=== PATIENT | female | born 1990 | race Caucasian/White ===

== ENCOUNTER 2023-02-14 08:05 | Outpatient (CLI) | payer BC, SELFPAY ==
--- NOTE | 2023-02-14 08:15 | CRLHL7_ITS ---
For Patients: As a result of the Century Cures Act, medical imaging exams and procedure reports are released immediately into your electronic medical record. You may view this report before your referring provider. If you have questions, please contact your health care provider. INDICATION: First trimester scan, establish dates. COMPARISON: None. TECHNIQUE: Real-time arriaga-scale imaging of the pelvis was performed. FINDINGS: Sonographic imaging demonstrates a single living intrauterine gestation. The embryo demonstrates a regular cardiac rate measuring 166 beats per minute. The embryo`s crown-rump length measurement of 2.6 cm corresponds to a gestational age of 9 weeks 2 days with a sonographic due date of 09/17/2023. There is a normal-appearing yolk sac. There are no gross abnormalities noted within the embryo at this early state of development. The gestational sac has a normal appearance. There is a 1.5 x 0.6 x 1.1 cm perigestational hemorrhage. The amount of fluid within the sac appears appropriate for gestational age. The cervix is closed. The myometrium appears normal. The ovaries are of normal size. Corpus luteal cyst left ovary. There are no suspicious fluid collections noted in the cul-de-sac. IMPRESSION: Single living intrauterine with a sonographic gestational age of 9 weeks 2 days and sonographic due date of 09/17/2023. Lower uterine segment subchorionic hemorrhage measuring 1.5 x 0.6 x 1.1 cm. Dictated by Israel Santo MD @ 02/14/2023 9:24:48 AM (Electronically Signed)
== END 2023-02-14 08:06 | disposition home or self-care (01) ==
LOC: US 08:06
PROVIDERS: PCP Obstetrics & Gynecology; Visit Provider Physician Assistant
DX: Z34.91 Encounter for supervision of normal pregnancy, unspecified, first trimester (principal); Z3A.09 9 weeks gestation of pregnancy
CPT/HCPCS: 76817; 86703; 86803; 86850; 86900; 86901; 87086; 87340; 87491; 87591

== ENCOUNTER 2023-02-14 13:19 | Outpatient (CLI) | payer BC, SELFPAY ==
[2023-02-14 18:58] LABS: Chlamydia DNA Amplified* NOT DETECTED (No Detected); GC DNA Amplified* NOT DETECTED (No Detected)
== END 2023-02-14 13:20 | disposition home or self-care (01) ==
PROVIDERS: PCP Obstetrics & Gynecology; Visit Provider Registered Nurse
DX: Z34.91 Encounter for supervision of normal pregnancy, unspecified, first trimester (principal); Z3A.09 9 weeks gestation of pregnancy
CPT/HCPCS: 86592; 86703; 86762; 86787; 86803; 86850; 86900; 86901; 87086; 87340; 87491; 87591

== ENCOUNTER 2023-05-01 12:46 | Outpatient (CLI) | payer BC, SELFPAY ==
--- NOTE | 2023-05-01 13:00 | CRLHL7_ITS ---
For Patients: As a result of the Century Cures Act, medical imaging exams and procedure reports are released immediately into your electronic medical record. You may view this report before your referring provider. If you have questions, please contact your health care provider. INDICATION: Evaluate anatomy. COMPARISON: 02/14/2023 TECHNIQUE: Real time arriaga scale imaging of the fetus was performed as well as color Doppler analysis of the umbilical vessels. FINDINGS: Sonographic imaging demonstrates a single living intrauterine gestation. Fetus demonstrates a regular cardiac rate of 138 beats per minute. Fetus has a breech position. The placenta lies posteriorly without evidence of placenta previa. The placental edge is located 6.8 cm from the internal cervical os. Amniotic fluid volume appears normal. Single deepest vertical pocket: 3.9 cm. The cervix is closed and measures 4.0 cm in length. The composite ultrasound gestational age is calculated at 20 weeks 4 days with an estimated sonographic due date of 09/14/2023. The estimated weight is 379 grams which lies at the 59th %. The following biometric measurements were obtained: Biparietal diameter: 4.8 cm/20 weeks 3 days 44th% Head circumference: 17.8 cm/20 weeks 2 days 29th% Abdominal circumference: 16.1 cm/21 weeks 1 day 64th% Femur length: 3.4 cm/20 weeks 4 days 40th% The HC/AC ratio measures: 1.11 range (1.07-1.25) On anatomic survey, there is a normal appearance of the cerebral ventricles, cavum septi pellucidi, cisterna magna and cerebellum. The nose, lips, and facial profile appear normal. The cervical, thoracic and lumbar spine are well visualized and appear normal. There is a normal four-chamber heart view and the left and right ventricular outflow tracts appear normal. The diaphragm and stomach appear normal. The kidneys and bladder also appear normal. There is a normal three-vessel cord and cord insertion site. The four extremities appear normal. IMPRESSION: Normal OB ultrasound exam with concordance of clinical and sonographic dating. No intrinsic abnormalities noted on anatomic survey. Dictated by Israel Santo MD @ 05/02/2023 7:15:47 AM (Electronically Signed)
== END 2023-05-01 12:47 | disposition home or self-care (01) ==
LOC: US 12:46
PROVIDERS: Visit Provider Obstetrics & Gynecology
DX: Z34.92 Encounter for supervision of normal pregnancy, unspecified, second trimester (principal); Z3A.20 20 weeks gestation of pregnancy
CPT/HCPCS: 76805

== ENCOUNTER 2023-06-27 08:46 | Outpatient (CLI) | payer OTHER, SELFPAY ==
--- OUTSIDE RECORDS SUMMARY | 2023-06-30 07:12 | XMS_ITS | Data Portability ---
Author Name Unknown Address [address] [place] [address] Phone [phone] Organization [facility] Address [address] [place] [address] Assessment Encounter Date Assessment Date Assessment LastModified by Organization Details LastModified Time 05/16/2022 05/16/2022 Annual gynecological exam performed. Patient will come back in a year unless there are new symptoms. Cervical mucus. Not available 05/16/2022 09:42:06 05/17/2022 05/17/2022 Bri is TTC and wants to optimize her health for fertility. Current BMI is in the overweight category. Bri has a good foundation of what makes a balanced meal, eats a diverse diet. She would like to cook at home more, order less takeout, and eat less treats after dinner. Plan: -Focus on satiety throughout the day to prevent after dinner unintentional snacking/treats. -Pair carbs with protein at all meals and snacks. -Practice some quick/easy home dinners to prevent takeout, don't stress about them being perfect. -Increase nutrient density in diet for fertility. Fish 2x/week, eggs daily, at least 5 servings of F/V daily. -Start reframing exercise as a lifelong healthy habit for mental health rather than changing your body. Not available 05/17/2022 10:01:49 Plan of Treatment Reminders Order Date Submit Date Provider Last Modified By Organization Details Last Modified Time Details Appointments None recorded. Lab None recorded. Referral infertility reproductiv e endocrinolo gy referral 2021 022 Not available 16:47:38 Procedures None recorded. Surgeries None recorded. Imaging None recorded. Medication Orders None recorded. Patient TargetsNo targets recorded. Patient Instructions Encounter Date Encounter Id Patient Instructions Last Modified By Organization Details Last Modified Time 05/17/2022 [id number] nutrition during : care instructions [email or web address] Not available 05/17/2022 10:02:55 1. Don't let carbohydrates fly solo. Eat carbohydrate-rich snacks and meals alongside protein + fat. For example, pair afternoon fruit with cheese, nuts, nut butter, etc. Check out the Balanced Snacks handout for more ideas. 2. Start mastering some quick and easy dinners at home to minimize frequency of ordering takeout. See below for some ideas. 3. Aim to eat fish 2x/week, eggs daily, and sneak fruits and vegetables into all meals and snacks. Add protein, fresh fruit, nut butter, seed mix, etc to your morning oatmeal to add nutrient-density. 4. Consider how you might reframe exercise to be something you value you doing, whether or not it changes your body. Maybe start looking into studios close to work you could take classes at a couple of times per week. Not available 05/17/2022 10:02:22 05/16/2022 [id number] Varun Montejo as wonderful chatting with you today, we hope you had a delightful experience! Care plan 1. Trying to conceive - Referral to a lamination spinner. I'll send you some in-network referral options 2. Optimizing health and wellness - I am happy you are meeting with Brianna. Together you can discuss how you can use nutrition to improve your health and get to a optimal weight. As always, feel free to contact us with any questions or concerns. 1. [facility]. Located on [address], [place] [address], about a [address] home[address] They have great patient reviews and accept your insurance. Check out their website and let me know what you think. If you are interested, there is a new patient registration form to complete. [email or web address] 2. [facility]. Located on [address] [facility], [address] [place] [address], about a [address] your home. This is a well known fertility practice and they have great patient reviews. They also accept your insurance. Take a look at the website and let me know what you think. [email or web address] 3. [facility]. Located at [address] [place] [address] [address], [place] [address], a [address] home. They have great patient reviews, accept your insurance and have good general availability. Check out their website and let me know what you think. [email or web address] ([email or web address] Not available 05/16/2022 17:08:03 Reason for Referral Infertility Reproductive End ocrinology Referral for Adult health examination Referring Physician: Kareem Sigala, Family Medicine, Encounter Date: 05/16/2022 Problems Name Status Onset Date Resolution Date Notes Provider Name and Address Organization Details Recorded Time Obesity Active [address], [address], [place], [address], [place] [facility] 05/16/2022 14:00:04 Problem Notes None recorded. Procedures Surgical History Date Name Laterality Status Provider Name and Address Organization Details Recorded Time 02/10/20 22 Date of Last Pap Smear completed [address], [address], [place], [address], [place] [facility] 05/16/2022 09:26:24 05/11/20 07 diagnostic procedure on adenoids completed [address], [address], [place], [address], [place] [facility] 05/16/2022 09:12:01 05/11/20 03 Appendectomy completed [address], [address], [place], [address], [place] [facility] 05/16/2022 09:11:41 Imaging Results None recorded. Procedure Notes None recorded. Medical Equipment None Reported. Allergies Allergen ID Allergen Name Allergen Category Reaction Reaction Severity Criticality Documentation Date Start Date Code Code System Note Provider Name and Address Organization Details Recorded Time 327 cefprozil medicatio n hives Not available Not available 05/16/2022 62687 RxNorm Kareem Sigala PA-C [address], [address], [place], [address], [facility] 09:10:31 Medications Name Sig Start Date Stop Date Status Note LastModified by Organization Details LastModified Time active Not Available Not Avai lable Not Available Vitals Date Recorded Body weight Body mass index (BMI) Body height Provider Name and Address Organization Details Last Updated DateTime 05/16/2022 25212.7 g 27.4 kg/m2 167.64 cm Kareem Sigala PA-C [address], [address], [place], [address], [facility] 05/16/2022 09:33:08 Social History Question Answer Notes LastModified by [employer] ion Details LastModified Time What Type Of Diet Are You Following? REGULAR I Probably Could Be Healthier. Information not available 05/16/2022 How Many Times Per Week Do You Exercise? 1-2 Times Per Week Videos, And Arms. She Used To Be A Member Of A Gym, But Classes. Information not available 05/16/2022 What Is Your Relationship Status? Information not available 05/16/2022 Are You Sexually Active? Yes Information not available 05/16/2022 Do You Have Any Dietary Restrictions? No Information not available 05/16/2022 Sex: Female Functional Status Question Answer Note LastModified by [facility] Details LastModified Time Are you able to care for yourself? Partner. Mook. Information not available 05/16/2022 What is your exercise level? Occasional Information not available 05/16/2022 Mental Status None recorded. Family History Relationship Description Onset Age of this Age Resolved Age Notes Father Depressive disorder Mother Miscarriage Notes:Older sister and older brother. Sister got easily. Her brother, they have 2 children. First, was natural, and second was IVF. Medical History No medical history recorded. Gynecological History Statement/Question Response Abnormal Pap N Flow Moderate What is the patient's status T rying to conceive Date of LMP 05/05/2022 On BCP's at Conception? N Duration of Flow (days) 28 Current Control Method Age at Menarche 12 Sexually Active? Y Menses Monthly Y Date of Last Pap Smear 02/09/2022 LMP Definite Obstetrics History GPAL:G 0 P 0 0 0 0 Past Encounters Encounter ID Performer Location Encounter Start Date Encounter Closed Date Diagnosis/Indication [id number] Kareem Sigala PA-C [facility] [address] [facility], [address] [place] [address] 05/16/2022 08:56:21 05/23/2022 16:47:38 Adult health examination Trying to conceive Obesity [id number] [facility] [address] [facility], [address] [place] [address] 05/17/2022 08:59:40 05/17/2022 10:03:10 Nutritional assessment completed Health Concerns Section Related Observation LastModified by Organization Detai ls LastModified Time None Recorded Concern Status LastModified by Organization Details LastModified Time None Recorded Advance Directives Directive None Recorded Payers Encounter Date Sequence Insurance Name Policy Number Policy Gavin Covered Member ID Gavin Member ID Guarantor Name 05/17/2022 1 [place] BC[employer] [place]) [id number] 1 Mook Pineda [id number] 37 Bri Edwin 05/16/2022 1 [place] [id number] 1 Mook Pineda [id number] Bri Pineda Notes Date Note Type Note Provider Name and Address Organization Details Recorded Time 05/16/2022 text/html HPI Notes: 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 History: actively trying to conceive Sexual complaints: no sexual complaints; no pain during intercourse; normal libido She found out about [facility] through her healthcare program. She got a card in the mail. This is a 31 year old. She has been for 4 years. In the past couple of years. They were trying, but then her brother 1.5 years ago. We have been doing everything right. What have you been doing to understand your fertility window? - Ovulation test strips. - She uses an sariah. She has never been Her brother tragically 1.5 years ago. Her sister has. She is taking it one day at a time. They have 3 children, no problem. Her family has grown closer. Talk to her parents about it. Accidental overdose. Her sister has had issues with depression during her period. She is 1 of four siblings. 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 Met her partner, Mook. Double major in [email or web address] and [employer]. General Health: - She has just gone to her OBGYN. 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 Last general physical, was in February. LMP: 05/05 libido: Doesn't feel like a burden. They do occasionally feel pressure, on that day. When they are fertile, at peak, those days and surrounding days. Mook's family, no family history. They are on Mook's insurance. She has blood work in February. She lives on a farm, dogs, Chickens and sheep, all outside. Kareem Sigala PA-C [address], [place], [address], - RANDY, PTamelaC. 05/23/2022 15:47:20 05/17/2022 text/html HPI Notes: What are your main priorities right now regarding food and nutrition? Healthier lifestyle, fertility, weight loss more takeout than I'd like treats Was 120 in college, 5'6. Gained d/t drinking. Lost weight after she stopped partying as much. Gained 10# in marriage, 10# (or more) in covid. Do you follow a special diet or have any particular food preferences? (for example, vegetarian, gluten-free, etc.) No Walk through a typical day of eating and drinking for you. It may be helpful to think about what you ate/drank yesterday. Please include all meals, snacks, and beverages. Breakfast: coffee & oatmeal. Lunch: chicken, dc pepper, adam, string cheese 4 pm Snack: apple Dinner: chicken thighs, sweet potatoes, salad, asparagus sometimes after dinner snack, treats. I drink water throughout the day she mainly grocery shops- does meal prep [place] Lives on a [place] farm- has fresh eggs and meat (chicken, brady). will meal plan for lunch but sometimes but gets takeout for dinner more often than ideal. works 9-6 as a tv news director. Brings lunch to work, rarely grabs lunch out (1x/mo). Do you currently take any vitamins, supplements or herbs? Which ones? Nature Made Multi + DHA Have you used diets to lose weight? I? ve used weight watchers in the past Is there anything you want your dietitian to know about your relationship with food or body image? I don? t have the best body image What form of exercise do you like to do, if any? I prefer classes, but have worked out at home since Covid started. I could work out more ? I currently exercise about once a week. Are there any questions you have that you? d like to be answered during the time together? I? m just looking forward to your insight on bettering my lifestyle and living healthier Brianna Grimm, [address], [address], [place], [address], - R[facility]Y, P[facility] 05/17/2022 10:03:06 OBGyn Episode No OBEpisode recorded.
--- OUTSIDE RECORDS SUMMARY | 2023-06-30 07:12 | XMS_ITS ---
Author Name Unknown Organization Unknown Patient Care team information Name Category Status Period Participants - - period not known -
--- OUTSIDE RECORDS SUMMARY | 2023-06-30 07:12 | XMS_ITS | Clinical Summary ---
Author Name Unknown Organization [facility] Address [place], [place] [address] Care Team Providers Care Small Business Director Name Role Phone None Primary Care Provider Unavailabl e Social History Tobacco Use Types Packs/Day Years Used Date Smoking Tobacco: Never Assessed Sex and Gender Information Value Date Recorded Sex Assigned at Not on file Gender Identity Not on file Sexual Orientation Not on file Plan of Treatment Health Maintenance Due Date Last Done Comments Tdap 2001 Depression screening for age 12+ 2002 HIV for age 15-65 2005 BMI (ht and wt on same day) for age 18+ 2008 Hepatitis C screening for ag e 18-79 2008 Tetanus booster 2010 COVID-19 vaccine series (2022- season) 2023 10/25/2020, 10/02/2020 Influenza for age 9-49 02/09/2023 Pap test for age 21-65 03/02/2025 , 03/02/2022 Pneumococcal series for age 6-64 Aged Out No longer eligible b ased on patient's age to complete this topic Care Teams Small Business Director Relationship Specialty Start Date End Date None . PCP - General 04/04/19
== END 2023-06-27 08:47 | disposition home or self-care (01) ==
LOC: NFLDREF 06-30 07:10
PROVIDERS: Visit Provider Obstetrics & Gynecology
DX: Z34.90 Encounter for supervision of normal pregnancy, unspecified, unspecified trimester (principal)
CPT/HCPCS: 86592

== ENCOUNTER 2023-07-04 08:04 | Outpatient (CLI) | payer OTHER, SELFPAY ==
--- OUTSIDE RECORDS SUMMARY | 2023-07-06 07:50 | XMS_ITS | Data Portability ---
Author Name Unknown Address [address] [place] [address] Phone [phone] Organization [facility] Address [address] [place] [address] Assessment Encounter Date Assessment Date Assessment LastModified [...] Trying to conceive - Referral to a jewelry racker. I'll send you some in-network referral options [...] Located on [address], [place] [address], about a [address] home[address] They have great patient reviews and accept your insurance. Check out their website and let me know what you think. If you are interested, there is a new patient registration form to complete. [email or web address] 2. [facility]. Located on [address] [facility], [address] [place] [address], about a [address] home. This is a well known fertility practice and they have great patient reviews. They also accept your insurance. Take a look at the website and let me know what you think. [email or web address] 3. [facility]. Located at [address] [place] [address] [address], [place] [address], a [address] home. They have great patient reviews, accept your insurance and have good general availability. Check out their website and let me know what you think. [email or web address] Not available 05/16/2022 17:08:03 Reason for Referral Infertility Reproductive End ocrinology Referral for Adult health examination Referring Physician: Kareem Sigala, Family Medicine, Encounter Date: 05/16/2022 Problems Name Status Onset Date Resolution Date Notes Provider Name and Address Organization Details Recorded Time Obesity Active [address], [address], [place], [address], [place] MD [facility] 05/16/2022 14:00:04 Problem Notes None recorded. Procedures Surgical History Date Name Laterality Status Provider Name and Address Organization Details Recorded Time 02/10/20 22 Date of Last Pap Smear completed [address], [address], [place], [address], [place] MD [facility] 05/16/2022 09:26:24 05/11/20 07 diagnostic procedure on adenoids completed [address], [address], [place], [address], [place] MD [facility] 05/16/2022 09:12:01 05/11/20 03 Appendectomy completed [address], [address], [place], [address], [place] MD [facility] 05/16/2022 09:11:41 Imaging Results None recorded. Procedure Notes None recorded. Medical Equipment None Reported. Allergies Allergen ID Allergen Name Allergen Category Reaction Reaction Severity Criticality Documentation Date Start Date Code Code System Note Provider Name and Address Organization Details Recorded Time 327 cefprozil medicatio n hives Not available Not available 05/16/2022 03074 RxNorm Kareem Sigala PA-C [address], [address], [place], [address], MD [facility] 09:10:31 Medications Name Sig Start Date Stop Date Status Note LastModified by Organization Details LastModified Time active Not Available Not Avai lable Not Available Vitals Date Recorded Body weight Body mass index (BMI) Body height Provider Name and Address Organization Details Last Updated DateTime 05/16/2022 72366.7 g 27.4 kg/m2 167.64 cm Kareem Sigala PA-C [address], [address], [place], [address], MD [facility] 05/16/2022 09:33:08 Social History Question Answer Notes LastModified by [employer] ion Details LastModified Time What Type Of [...] Functional Status Question Answer Note LastModified by [employer] Details LastModified Time Are you able to [...] Kareem Sigala PA-C [facility] [address] [facility], [address] [place] [address] 05/16/2022 08:56:21 05/23/2022 16:47:38 Adult health examination Trying to conceive Obesity [address] [facility] [address] [facility], [address] [place] [address] 05/17/2022 08:59:40 05/17/2022 10:03:10 Nutritional assessment completed Health Concerns Section Related Observation LastModified by Organization Detai ls LastModified Time None Recorded Concern Status LastModified by Organization Details LastModified Time None Recorded Advance Directives Directive None Recorded Payers Encounter Date Sequence Insurance Name Policy Number Policy Gavin Covered Member ID Gavin Member ID Guarantor Name 05/17/2022 1 [place] BC[place]) [id number] 1 Mook Pineda [id number] 37 Bri Edwin 05/16/2022 1 [place]) [id number] 1 Mook Pineda [id number] Bri Pineda Notes Date Note Type Note Provider Name and Address Organization Details Recorded Time 05/16/2022 text/html HPI Notes: 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 History: actively trying to [...] of four siblings. 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 Met her partner, Mook. Double major in [employer] and [employer]. General Health: - She has just gone to her OBGYN. No vocational ed instructor. Last general physical, was in February. LMP: 05/05 libido: Doesn't feel like a burden. They do occasionally feel pressure, on that day. When they are fertile, at peak, those days and surrounding days. Mook's family, no family history. They are on Mook's insurance. She has blood work in February. She lives on a farm, dogs, Chickens and sheep, all outside. Kareem Sigala PA-C [address], [place], [address], - RANDY, PTamelaC. 05/23/2022 15:47:20 05/17/2022 text/html [...] often than ideal. 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 Brings lunch to work, rarely grabs lunch [...] lifestyle and living healthier Brianna Grimm, NAT[address]IIA [address], [address], [place], [address], - RANDY, P.C. 05/17/2022 10:03:06 OBGyn Episode No OBEpisode recorded.
--- OUTSIDE RECORDS SUMMARY | 2023-07-06 07:50 | XMS_ITS | Clinical Summary ---
Author Name Unknown Organization [facility] Address [place], [place] [address] Care Team Providers Care Chisel Worker Name Role Phone None Primary Care Provider [...] age to complete this topic Care Teams Chisel Worker Relationship Specialty Start Date End Date None . PCP - General 04/04/19
== END 2023-07-04 08:05 | disposition home or self-care (01) ==
LOC: NFLDREF 07-06 07:48
PROVIDERS: Visit Provider Obstetrics & Gynecology
DX: Z34.93 Encounter for supervision of normal pregnancy, unspecified, third trimester (principal); R73.09 Other abnormal glucose
CPT/HCPCS: 82951; 82952

== ENCOUNTER 2023-08-22 09:55 | Outpatient (CLI) | payer OTHER, SELFPAY | END 2023-08-22 09:56 | disposition home or self-care (01) | LOC: NFLDREF 08-31 08:52 | PROVIDERS: Visit Provider Obstetrics & Gynecology | DX: Z34.93 Encounter for supervision of normal pregnancy, unspecified, third trimester (principal) | CPT/HCPCS: 87081; 87653 ==

== ENCOUNTER 2023-09-20 16:04 | Inpatient (IN) | payer OTHER, SELFPAY ==
--- OUTSIDE RECORDS SUMMARY | 2023-09-20 16:07 | XMS_ITS | Clinical Summary ---
Author Name Unknown Organization [employer] [facility] Address [place], [place] [address] Care Team Providers Care Tutorial Laboratory Supervisor Name Role Phone None Primary Care Provider [...] 2008 Tetanus booster 2010 COVID-19 vaccine series ( season) 2023 10/25/2020, 10/02/2020 Influenza for age 9-49 02/10/2024 Pap test for age 21-65 03/02/2025 , 03/02/2022 Pneumococcal series for age 6-64 Aged Out No longer eligible b ased on patient's age to complete this topic Procedures Procedure Name Priority Date/Time Associated Diagnosis Comments HPV THIN PREP Routine 03/02/2022 12:00 PM CDT from Last 3 Months or Most Recently Relevant to Health Maintenance Results * HPV HIGH RISK (03/02/2022 12:00 PM CDT) TYPE 16 Negative Negative 03/07/2022 5:45 PM CDT [facility] TYPE 18 Negative Negative 03/07/2022 5:45 PM CDT [facility] LABOR[facility] OTHER HIGH RISK TYPES Negative Negative 03/07/2022 5:45 PM CDT [facility] Other (Cervical) 03/02/2022 12:00 PM CDT 03/06/2022 8:23 AM CDT Narrative [facility] - 03/07/2022 5:45 PM CDT HPV types 16, 18, 31, 33, 35, 39, 45, 51, 52, 56, 58, 59, 66 and 68 DNA were undetectable or below the pre-set threshold. Methodology: Will Angelita 4800 HPV Test Doctor Unknown MICROBIOLOGY [facility] [address] [place] [address], from Last 3 Months or Most Recently Relevant to Health Maintenance Care Teams Tutorial Laboratory Supervisor Relationship Specialty Start Date End Date None . PCP - General 04/04/19
--- OUTSIDE RECORDS SUMMARY | 2023-09-20 16:07 | XMS_ITS | Data Portability ---
Author Name Unknown Address [address] [place] [id number] Phone [phone] Organization [facility] Address [address] [place] [address] Assessment Encounter Date Assessment Date Assessment LastModified [...] Trying to conceive - Referral to a bag patcher. I'll send you some in-network referral options [...] Located on [address], [place] [address], about a [address] home[address] They have great patient reviews and accept your insurance. Check out their website and let me know what you think. If you are interested, there is a new patient registration form to complete. [email or web address] 2. [facility]. Located on [address], [address] [place] [address], about a [address] home. This is a well known fertility practice and they have great patient reviews. They also accept your insurance. Take a look at the website and let me know what you think. [email or web address] 3. [facility]. Located at [address] [place] [address] [address], [place] [address], a [address] home. They have great patient reviews, accept your insurance and have good general availability. Check out their website and let me know what you think. [email or web address] Not available 05/16/2022 17:08:03 Reason for Referral Infertility Reproductive End ocrinology Referral for Adult health examination Referring Physician: Kareem Sigala, Family Medicine, Encounter Date: 05/16/2022 Problems Name Status Onset Date Resolution Date Notes Provider Name and Address Organization Details Recorded Time Obesity Active [address], [address], [place], [address], [place] [facility] 05/16/2022 14:00:04 Problem Notes None recorded. Procedures Surgical History Date Name Laterality Status Provider Name and Address Organization Details Recorded Time 02/10/20 22 Date of Last Pap Smear completed [address], [address], [place], [address], [place] [facility] 05/16/2022 09:26:24 05/11/20 07 diagnostic procedure on adenoids completed [address], [address], [place], [address], [place] [facility] 05/16/2022 09:12:01 05/11/20 03 Appendectomy completed [address], [address], [place], [address], [place] [facility] 05/16/2022 09:11:41 Imaging Results None recorded. Procedure Notes None recorded. Medical Equipment None Reported. Allergies Allergen ID Allergen Name Allergen Category Reaction Reaction Severity Criticality Documentation Date Start Date Code Code System Note Provider Name and Address Organization Details Recorded Time 327 cefprozil medicatio n hives Not available Not available 05/16/2022 30523 RxNorm Kareem Sigala PA-C [address], [address], [place], [address], [facility] 09:10:31 Medications Name Sig Start Date Stop Date Status Note LastModified by Organization Details LastModified Time active Not Available Not Avai lable Not Available Vitals Date Recorded Body weight Body mass index (BMI) Body height Provider Name and Address Organization Details Last Updated DateTime 05/16/2022 92148.7 g 27.4 kg/m2 167.64 cm Kareem Sigala PA-C [address], [address], [place], [address], [facility] 05/16/2022 09:33:08 Social History Question Answer Notes LastModified by [employer] ion Details LastModified Time What Type Of [...] Functional Status Question Answer Note LastModified by Robinhoodizat KongZhong Details LastModified Time Are you able to [...] Gynecological History Statement/Question Response Abnormal Pap N Trying to conceive Moderate Date of LMP 05/05/2022 N Duration of Flow (days) 28 Age at Menarche 12 Current Control Method Sexually Active? Y Menses Monthly Y Date of Last Pap Smear 02/09/2022 Definite Obstetrics History GPAL:G 0 P 0 0 0 0 Past Encounters Encounter ID Performer Location Encounter Start Date Encounter Closed Date Diagnosis/Indication Diagnosis SNOMED-CT Code [id number] Kareem Sigala PA-C [facility] [address] [place] [address] 05/16/2022 08:56:21 05/23/2022 16:47:38 Adult health examination [id number] Trying to conceive [address] 9001 Obesity [id number] [facility] [address] [place] [address] 05/17/2022 08:59:40 05/17/2022 10:03:10 Nutritional assessment completed [id number] Health Concerns Section Related Observation LastModified by Organization Detai ls LastModified Time None Recorded Concern Status LastModified by Organization Details LastModified Time None Recorded Advance Directives Directive None Recorded Payers Encounter Date Sequence Insurance Name Policy Number Policy Gavin Covered Member ID Gavin Member ID Guarantor Name 05/17/2022 1 [place]) [id number] Mook Pineda [id number] Bri Edwin 05/16/2022 1 [place] [id number] Mook Pineda [id number] Bri Pineda Notes Date Note Type Note Provider Name and Address Organization Details Recorded Time 05/16/2022 text/html HPI Notes: 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 History: actively trying to [...] Met her partner, Mook. 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 General Health: - She has just gone to her OBGYN. No color television console monitor. Last general physical, was in February. LMP: 05/05 libido: Doesn't feel like a burden. They do occasionally feel pressure, on that day. When they are fertile, at peak, those days and surrounding days. Mook's family, no family history. They are on Mook's insurance. She has blood work in February. She lives on a farm, dogs, Chickens and sheep, all outside. Kareem Sigala PA-C [address], [address], [place], [address], [facility] 05/23/2022 15:47:20 05/17/2022 text/html HPI Notes: What [...] my lifestyle and living healthier [place] [address], [address], [place], [address], - [facility] 05/17/2022 10:03:06 OBGyn Episode No OBEpisode recorded.
[2023-09-20 16:17] VITALS: PULSE 122; O2SAT 96
[2023-09-20 16:21] VITALS: BP 110/74; PULSE 117
--- NOTE | 2023-09-20 16:29 | P.LDBA_ITS ---
Subjective History of Present Illness Time Seen by Provider: 17:15 Date Seen: 09/20/23 Narrative: Bri is being admitted to Labor and Delivery for postdates induction of labor. She is a 33 year old G1/P at 40 weeks 6 days gestation. Her full history and physical was dictated by Dr. Morton on 08/28/2023. Please see this for details. Specific Issues/Plans G 1 [place] baby! H&P Dr. Morton on 08/28/2023 1. Infertility d/t 's low sperm motility -- conceived spontaneously after 3 unsuccessful rounds of IUI!! 2. Melanocytic skin lesion on abdomen, periumbilical, 1 mm. Consider excision . COVID: Completed, booster 05/01 Flu: got at work on 04/18/23 Tdap: 07/10/23 GBS: negative OB - Problem Based A/P Additional Plan (1) Encounter for induction of labor: Start date: 09/20/23 Start time: 17:10 Status: Acute Plan: 1. Cook catheter placed at 5:10 p.m., 60 mL in both balloons. 2. Low-dose Pitocin to start at midnight. 3. GBS negative 4. Blood type A positive 5. IM morphine and p.o. Vistaril ordered for pain and sleep, respectively. 6. Dr. Quintin Solano to assume care at 7Am on 09/21/2023 OB Exam Physical Exam Vital signs: Pulse BP Pulse Ox 117 H 110/74 96 09/20/23 16:21 09/20/23 16:21 09/20/23 16:17 Narrative: GENERAL APPEARANCE: Pleasant, [race], well-groomed woman in no acute distress. VITAL SIGNS: as noted in nursing notes HEAD: Normocephalic, atraumatic. THYROID: no masses, nodularity, tenderness or enlargement. LUNGS: Clear to auscultation bilaterally without wheezes, rales or rhonchi. HEART: Regular rate and rhythm with normal S1 and S2. No gallop, rub or murmur. ABDOMEN: Gravid. Soft, nontender, nondistended, with normal bowels sounds throughout. EFM: 125bpm baseline, Accelerations: present. Decelerations: Absent. Reactive. Category 1. TOCO: Irritability with sporadic contractions. PRESENTATION: Vertex by Jabari's maneuvers, bedside ultrasound and SVE.. SVE: 1 cm/ 70%/ -1/soft/posterior. Weeks score: 7. Cook catheter placed without difficulty at 5:10 p.m. 60 mL in both balloons. EXTREMITIES: No cyanosis, clubbing, or edema. No varicosities. NEUROLOGIC: Normal gait and balance. Normal deep tendon reflexes at bilateral p atella 2+/2, equal without clonus. PSYCHIATRIC: alert and oriented x3. Normal speech pattern, eye contact and affect. SKIN: Warm, dry, and well perfused. Good turgor. No lesions, nodules or rashes.
[2023-09-20 18:12] VITALS: BMI 31.4
[2023-09-20 19:00] LABS: Basophils Absolute Auto 0.02 K/uL (0.00-0.30); Basophils Percent Auto 0.2 % (0.0-3.0); Eosinophils Absolute Auto 0.09 K/uL (0.00-0.50); Eosinophils Percent Auto 0.9 % (0.0-7.0); Hematocrit 36.6 % (33.0-51.0); Hemoglobin* 12.4 gm/dL (12.0-16.0); Immature Granulocytes Abs Auto 0.05 K/uL (0.00-0.30); Immature Granulocytes Pct Auto 0.5 %; Lymphocytes Percent Auto 18.6 % (20-44); Mean Corpuscular HGB Conc 34 gm/dL (32-36); Mean Corpuscular Hemoglobin 31 pg (26-34); Mean Corpuscular Volume 92 fL (80-100); Monocytes Percent Auto 6.4 % (0.0-11.0); Neutrophils Percent Auto 73.4 % (42.0-72.0); Platelet Count* 221 K/uL (140-440); RDW Coefficient of Variation % 13.3 % (11.5-15.5); Red Blood Count 3.97 m/uL (4.00-5.20); White Blood Count* 9.93 K/uL (4.50-11.00)
[2023-09-20 19:03] LABS: Slide Review Reflex No
[2023-09-20] MEDS: LACTATED RINGERS 1000 ML 1,000 ML 500 ML IV (19:20)
[2023-09-20 19:26] VITALS: BP 123/82; PULSE 89; TEMP 36.6
[2023-09-20 21:15] VITALS: BP 129/76; PULSE 91; TEMP 36.2
[2023-09-20] MEDS: OXYTOCIN 30 unit/500 ML in NS 30 UNIT/500 ML BAG IVPB (23:59)
[2023-09-21] VITALS (30 sets, daily range): BP systolic 105–146; BP diastolic 56–83; PULSE 63–92; RESP 16–18; TEMP 36.4–37; O2SAT 97–100
[2023-09-21] MEDS: LACTATED RINGERS 1000 ML 1,000 ML 125 ML IV ×2 (02:41→17:20)
--- NOTE | 2023-09-21 07:58 | PM.OBPNL ---
Subjective Time Seen by Provider: 07:30 Date Seen: 09/21/23 Narrative: Ms. Pineda is a 33yo ongoing IOL at 41w0d GA for late term gestation. is otherwise uncomplicated. Induction of labor was started yesterday evening with Cook catheter and Pitocin. Cook catheter was removed at 12 hours, Pitocin is currently running at 7 mU/min. Bri is feeling well with no acute concerns. She denies feeling her contractions. No vaginal bleeding or leaking of fluid. Endorses active movement. Objective Exam: General: Alert and oriented, in no acute distress Abdomen: Gravid. EFW 3800 g by Pedro. Cervix: 3/60/-1 with head well applied to the cervix FHR: Category 1 heart rate tracing - baseline is 140 beats per minute, moderate variability, accelerations present, decelerations absent. [place]: Markus every 2-3 minutes, not painfully Vital Signs: Last Vital Signs Temp 98.1 F 09/21/23 07:15 Pulse 89 09/21/23 07:15 BP 126/81 09/21/23 07:15 Pulse Ox 98 09/21/23 07:15 Plan Plan: Bri is a 33-year-old seen at 41 weeks 0 days ongoing induction of labor for late term gestation. is otherwise uncomplicated. - Induction was started with Cook catheter and Pitocin - Cervix is now 3/60/-1, she is markus every 2-3 minutes without pain on Pitocin at 7. - Plan to continue Pitocin titration over the next few hours with plan to AROM as likely next step - Anticipate next exam in 3-4 hours, sooner as clinically indicated - Blood type A positive, GBS negative - EFW by Jabari's 3800 g
[2023-09-21] MEDS: LACTATED RINGERS 1000 ML 1,000 ML 1125 ML IV ×2 (10:27→10:28)
--- NOTE | 2023-09-21 17:26 | P.OBPN_ITS ---
Subjective Time Seen by Provider: 16:30 Date Seen: 09/21/23 Narrative: Bri is a 33-year-old at 41 weeks 0 days gestation ongoing induction of labor for late term gestation. She is status post Cook catheter, AROM and is ongoing Pitocin titration. In to assess for labor check. She reports uncomfortable contractions, 3/10 in severity. No vaginal bleeding. Objective Exam: Cervix: 3.5/70/-1 FHR: Category 1. Baseline 140bpm, moderate variability, accelerations present, decelerations absent [place]: Wilda q2-3m Vital Signs: Last Vital Signs Temp 98.2 F 09/21/23 16:17 Pulse 76 09/21/23 17:24 BP 136/76 09/21/23 17:24 Pulse Ox 97 09/21/23 15:04 Plan Plan: Plan to continue Pitocin titration, currently on 15mU/min. Once we reached 20, plan to hold Pitocin at this value pending FHR and toco data. If her exam remains unchanged at 4 hours, plan to proceed with IUPC placement to assess adequacy of contractions. - Next exam in 4-6 hours, sooner as clinically indicated - Blood type B positive - GBS negative
[2023-09-22] VITALS (119 sets, daily range): BP systolic 89–201; BP diastolic 50–134; PULSE 61–134; RESP 16–26; TEMP 36.7–37.9; O2SAT 96–99
[2023-09-22] MEDS: LACTATED RINGERS 1000 ML 1,000 ML 900 ML IV (00:20)
--- NOTE | 2023-09-22 00:50 | PM.OBPNL ---
Subjective Time Seen by Provider: 00:00 Date Seen: 09/22/23 Narrative: In to assess for routine exam. Patient noting increasing pain with contractions, questioning epidural. RN exam notable for no cervical change. We discussed risks/benefits of pain control methods, where she ultimately desires epidural placement. [employer] notified. Discussed risks/benefits/alternatives to IUPC placement and pitocin titration. Objective Vital Signs: Last Vital Signs Temp 98.0 F 09/21/23 22:30 Pulse 88 09/22/23 00:24 Resp 18 09/21/23 22:30 BP 136/86 09/22/23 00:24 Pulse Ox 99 09/22/23 00:47 Pelvic Exam Dilation (cm): 3.5 Effacement (%): 80 Station: -1 Plan Plan: Bri is a 33yo at 41w1d GA ongoing IOL for late term gestation. Her labor course is significant for slow progress through the latent phase of labor. She is s/p cook catheter, pitocin approximately 24 hours and AROM performed at 1200. Cervix is now 3.5/80/-1, where IUPC was placed. Plan to proceed with epidural placement, then continue pitocin titration to total of 30mu/min. If no cervical change is noted, consider pitocin holiday with future checks. We discussed her abnormal labor course and when a primary C/S may be considered for failed IOL. I explained my standard guideline for failed IOL would include both >24 hours on pitocin and AROM >18 hours, assuming stable maternal and condition. As such, I tried to reassure Bri that we do still have time and tools in our kit. If we are unable to get her into active labor with the above plan, however, I would recommend consideration of primary C/S in the morning. Bri and her expressed understanding. All questions answered. Next exam in 4-6 hours, sooner as clinically indicated.
[2023-09-22] MEDS: ROPIVACAINE 0.2% 100 ml 100 ML 12 MG EPIDURAL ×3 (01:02→17:38)
--- NOTE | 2023-09-22 01:08 | P.ANBPRC_ITS ---
[facility] Surgical History (Updated 08/28/23 @ 08:54 by Ciera Morton MD) History of tonsillectomy ?Z90.89 - Acquired absence of other organs (ICD-10) Hx of appendectomy ?Z90.49 - Acquired absence of other specified parts of digestive tract (ICD- 10) Family History Mother Non-Hodgkin lymphoma Lewy body dementia Thyroid disease High blood pressure Osteoporosis Basal cell carcinoma Brother High blood pressure Drug dependence Maternal Grandmother Colon cancer Stroke Social History (Updated 08/28/23 @ 08:55 by Ciera Morton MD) Narrative: Lives in [place] with . 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 Patient is . What is your current living situation?: I presently have a place to live Problems where you live: no known problems In the past 12 months, utilities in danger of being shut off: no In past 12 months, lack of transportation kept you from medical appts, meetings, work, or getting things needed for daily living: no In the past 12 mos, have been you worried that your food would run out before you had money to buy more?: never true In the past 12 mos, the food you bought just didn't last and you didn't have money to buy more?: never true Smoking Status: Never smoker How often does anyone, including family, friends and others, physically hurt you : never How often does anyone, including family, friends and others, insult or talk down to you: never How often does anyone, including family, friends and others, threaten you with harm: never How often does anyone, including family, friends and others, scream or curse at you: never Little interest or pleasure in doing things: not at all Feeling down, depressed, or hopeless: not at all Meds Home Medications and Allergies Home Medications Medication Instructions Recorded Confirmed Type docosahexaenoic acid 200 mg 1 mg PO DAILY 02/14/23 09/21/23 History capsule ( DHA) calcium carbonate (Tums) 200 mg PO BID 09/04/23 09/20/23 History Allergies Allergy/AdvReac Type Severity Reaction Status Date / Time cefprozil Allergy Mild Hives Verified 09/19/23 08:21 Results Vital Signs Vital Signs: Last Vital Signs Temp 98.0 F 09/21/23 22:30 Pulse 93 09/22/23 01:06 Resp 18 09/21/23 22:30 BP 129/62 09/22/23 01:06 Pulse Ox 98 09/22/23 01:07 Weight: 88.36 kg Height: 167.64 cm Anesthesia Procedures Epidural Insertion Patient Location: OB Start Time: 00:20 Stop Time: 01:09 Start Date: 09/22/23 Stop Date: 09/22/23 Reason for Block: procedure for pain Patient Position: sitting Performed By: Иван George Preanesthetic Checklist: IV checked, risks and benefits discussed, monitors and equipment checked, pre-op evaluation, timeout performed and anesthesia consent Prep: chlorhexidine gluconate Monitoring: blood pressure monitoring, continuous pulse oximetry and heart rate Approach: midline (spinous process was off to the left of the midline of the back. Pt denies scoliosis, reports brother diagnosed with scoliosis ) Vertebral Space: lumbar (1-5) Epidural Technique: DEDRICK saline Needle Type: Tuohy needle Injection Technique: continuous catheter Needle gauge: 17 Needle Length (cm): 10 cm Needle Insertion Depth (cm): 7 Catheter Gauge: 19 Catheter Type: multi-orifice Catheter at skin depth (cm): 13 Test Dose Result: negative and lidocaine 1.5% with epinephrine 1 to 200,000
[2023-09-22] MEDS: PHENYLEPHRINE 100 MCG/ML SYRINGE IVP ×2 (02:24→06:55)
[2023-09-22] MEDS: CALCIUM CARBONATE 500 MG CHEW PO ×2 (05:10→07:48)
[2023-09-22] MEDS: LACTATED RINGERS 1000 ML 1,000 ML 125 ML IV ×2 (06:22→14:29)
--- NOTE | 2023-09-22 08:18 | P.OBPN_ITS ---
Subjective Time Seen by Provider: 08:18 Date Seen: 09/22/23 Narrative: Subjective: Patient is comfortable w/ epidural/uncomfortable with contractions. Pitocin: 25 milliunits/minute. Vital signs: Per electronic medical record. EFM: Baseline 130s, positive accelerations, negative decelerations, moderate variability, reactive. Category 1. IUPC: Contractions every 2 minutes. [place] units at 7am: 200. SVE: Deferred Assessment: 33-year-old 1 para 0 at 41 weeks 1 days gestation undergoing postdates induction of labor Plan: 1. Stop Pitocin for 30 minutes, restart at 12 milliunits/minute for Pitocin break to hopefully allow more Pitocin receptors to be available for Pitocin to activate the uterus. 2. Continue epidural for labor analgesia. 3. If unable to get the patient past 5 cm dilated with Pitocin will perform a primary for unsuccessful induction of labor. Objective Vital Signs: Last Vital Signs Temp 98.4 F 09/22/23 07:32 Pulse 87 09/22/23 08:07 Resp 16 09/22/23 06:12 BP 108/62 09/22/23 08:07 Pulse Ox 98 09/22/23 01:07 Pelvic Exam Dilation (cm): 3.5 Effacement (%): 80 Station: -1
[2023-09-22] MEDS: OXYTOCIN 30 unit/500 ML in NS 30 UNIT/500 ML BAG 16 UNIT IVPB (14:10)
--- NOTE | 2023-09-22 14:32 | PM.OBPNL ---
Subjective Time Seen by Provider: 14:32 Date Seen: 09/22/23 Narrative: Subjective: Patient is somewhat uncomfortable with contractions but managing well, has an epidural. Pitocin: 16 milliunits/minute. Vital signs: Per electronic medical record. EFM: Baseline 150, 10 x 10 accelerations, sporadic variable decelerations, moderate variability, nonreactive. Category 2 but reassuring. [place]: Contractions every 2 minutes. SVE: 10 cm/100 %/+1. Assessment: 33-year-old 1 para 0 at 41 weeks 1 days gestation undergoing induction of labor for postdates Plan: 1. Continue Pitocin per labor induction protocol. 2. Continue epidural for labor analgesia. 3. Planning on starting pushing. Objective Vital Signs: Last Vital Signs Temp 98.7 F 09/22/23 13:00 Pulse 88 09/22/23 14:21 Resp 16 09/22/23 06:12 BP 135/76 09/22/23 14:21 Pulse Ox 98 09/22/23 01:07 Pelvic Exam Dilation (cm): 3.5 Effacement (%): 80 Station: -1
[2023-09-22] MEDS: ACETAMINOPHEN 500 MG TABLET 1000 MG PO (19:17)
[2023-09-22] MEDS: TRANEXAMIC ACID 100 MG/ML INJ 1000 MG IV (19:21)
[2023-09-22] MEDS: miSOPROStoL 800 MCG/4 TABLET PR (19:33)
[2023-09-22] MEDS: METHYLERGONOVINE MALEATE 0.2 MG/ML INJ IM (19:39)
[2023-09-22 19:58] LABS: Hematocrit 35.4 % (33.0-51.0); Hemoglobin* 11.7 gm/dL (12.0-16.0); Immature Granulocytes Pct Auto 0.4 %; Lymphocytes Percent Auto 2.1 % (20-44); Mean Corpuscular HGB Conc 33 gm/dL (32-36); Mean Corpuscular Hemoglobin 31 pg (26-34); Mean Corpuscular Volume 94 fL (80-100); Monocytes Percent Auto 4.6 % (0.0-11.0); Neutrophils Percent Auto 92.9 % (42.0-72.0); Platelet Count* 190 K/uL (140-440); RDW Coefficient of Variation % 13.2 % (11.5-15.5); Red Blood Count 3.75 m/uL (4.00-5.20); White Blood Count* 18.85 K/uL (4.50-11.00)
[2023-09-22 20:00] LABS: Slide Review Reflex No
--- NOTE | 2023-09-22 20:06 | W.PM.VAGDEL1 ---
Procedure Delivery date: 09/22/23 Procedure Done: Global Procedure Details: Bri is a 33 year-old G 1 P 0 now 1 admitted on 09/20/2023 at 4:30 p.m. at 40 Weeks, 6 Days gestation for induction of labor. She had a Cook catheter placed at 5:10 p.m. on 09/20/2023 that was removed at 5:10 a.m. on 09/21/2023. Low-dose Pitocin started at 5:00 a.m. on 09/21/2023 AROM occurred at 12:10 p.m. on 09/21/2023 with clear fluid. Labor Analgesia: Epidural Pitocin: Yes Labor onset: 09/22/2003 at 12:30 a.m.. Complete: 09/22/2023 at 4:24 p.m.. Pushin09/22/2023 at 2:40 p.m.. heart tones during second stage were: Category 2 with some deep variable decelerations to the 80s-90s with . Moderate variability between contractions with baseline increased to 170s in the last hour of her 2nd stage. Maternal temperature 100.8? F 45 minutes after delivery. At 7:08 p.m. a viable female infant delivered in vertex direct OA presentation over second-degree perineal laceration via spontaneous vaginal delivery. The infant was placed on maternal abdomen. Cord was clamped and cut after a 60 second delay. Nose and mouth were bulb suctioned. Infant weight pending. 8 at 1 minute and 9 at 5 minutes. Shoulder dystocia: No. Nuchal cord: No. Terminal meconium noted Placenta delivered spontaneously and complete at 7:31 p.m. with a 3 vessel cord. After delivery of the placenta there was noted to be significant lower uterine segment atony. Patient received a g of TXA after delivery of the baby, Pitocin 30 milliunits in 500 mL lactated Ringer's at 300 mL/hour IV, Methergine 0.2 mg IM x1, Cytotec 800 mg p.r. and placement of Shalonda system to treat uterine atony. Laceration(s): 2nd degree perineal. Repaired using 3-0 Vicryl suture in the usual manner. Blood loss: 900 mL. Blood loss measurement type: Quantitative Sponge and needles counts are correct. Specimen: None Mother and were stable after delivery. 's name: More (K-eye-uh) The patient is planning on breast feeding. Events: Prolonged Rupture of Membrane Intrapartal Events: Prolonged Labor >20 Hrs and Prolonged 2nd Stage >2.5 Hrs Delivery augmentation: rupture of membranes and pitocin Delivery monitor: external FHT Laceration description: Perineal - 2nd Degree Delivery repair: Vicryl Estimated blood loss (mL): 900 Anesthesia type: Epidural Disposition: floor
[2023-09-22 20:16] LABS: INR 1.02 (0.91-1.10); Prothrombin Time 14.1 Seconds
[2023-09-22 20:17] LABS: Fibrinogen* 506 mg/dL (200-450); Partial Thromboplastin Time* 28 Seconds (23-33)
[2023-09-22] MEDS: IBUPROFEN 600 MG TABLET PO (23:05)
[2023-09-23 00:04] VITALS: BP 113/70; PULSE 96; RESP 16; TEMP 36.9
[2023-09-23 00:37] LABS: Rapid Plasma Reagin (RPR) Non Reactive (Non Reactive)
[2023-09-23] MEDS: ACETAMINOPHEN 500 MG TABLET 1000 MG PO ×3 (02:25→16:27)
[2023-09-23 05:21] VITALS: BP 120/71; PULSE 85; RESP 16; TEMP 36.6
[2023-09-23] MEDS: IBUPROFEN 600 MG TABLET PO ×3 (05:22→23:17)
[2023-09-23 06:27] LABS: Basophils Percent Auto 0.1 % (0.0-3.0); Hematocrit 30.6 % (33.0-51.0); Hemoglobin* 10.4 gm/dL (12.0-16.0); Immature Granulocytes Pct Auto 0.4 %; Lymphocytes Percent Auto 5.8 % (20-44); Mean Corpuscular HGB Conc 34 gm/dL (32-36); Mean Corpuscular Hemoglobin 32 pg (26-34); Mean Corpuscular Volume 94 fL (80-100); Monocytes Percent Auto 6.5 % (0.0-11.0); Neutrophils Percent Auto 87.2 % (42.0-72.0); Platelet Count* 182 K/uL (140-440); RDW Coefficient of Variation % 13.5 % (11.5-15.5); Red Blood Count 3.26 m/uL (4.00-5.20)
[2023-09-23 06:36] LABS: Slide Review Reflex No; White Blood Count* 27.67 K/uL (4.50-11.00)
[2023-09-23 07:23] LABS: INR 1.17 (0.91-1.10); Prothrombin Time 15.6 Seconds
[2023-09-23 07:24] LABS: Partial Thromboplastin Time* 34 Seconds (23-33)
[2023-09-23 07:25] LABS: Fibrinogen* 552 mg/dL (200-450)
[2023-09-23 09:12] VITALS: BP 112/75; PULSE 88; RESP 16; TEMP 36.5; O2SAT 100
[2023-09-23] MEDS: DOCUSATE SODIUM 100 MG CAPSULE PO (09:22)
--- NOTE | 2023-09-23 10:19 | P.OBPN_ITS ---
OB - PN:Subj Subjective Time Seen by Provider: 10:19 Date Seen: 09/23/23 Patient comments OB post-: no complaints, pain well controlled, tolerating diet and flatus present infant status: [place] feeding status: exclusively OB - PN: Obj Exam Physical Exam: Vital signs: Temp Pulse Resp BP Pulse Ox O2 Del Method 97.7 F 88 16 112/75 100 Room Air 09/23/23 09:12 09/23/23 09:12 09/23/23 09:12 09/23/23 09:12 09/23/23 09:12 09/23/23 09:12 Narrative: GENERAL APPEARANCE: Pleasant, , well-groomed woman in no acute distress. VITAL SIGNS: as noted in nursing notes HEAD: Normocephalic, atraumatic. THYROID: no masses, nodularity, tenderness or enlargement. LUNGS: Clear to auscultation bilaterally without wheezes, rales or rhonchi. HEART: Regular rate and rhythm with normal S1 and S2. No gallop, rub or murmur. ABDOMEN: Fundus firm at 1 cm below the umbilicus midline. Soft, nontender, nondistended, with normal bowels sounds throughout. EXTREMITIES: No cyanosis, clubbing, or edema. No varicosities. NEUROLOGIC: Normal gait and balance. Normal deep tendon reflexes at bilateral patella 2+/2, equal without clonus. PSYCHIATRIC: alert and oriented x3. Normal speech pattern, eye contact and affect. SKIN: Warm, dry, and well perfused. Good turgor. No lesions, nodules or rashes. OB - PN: Obj Data Labs Labs: Laboratory Results - last 24 hr 09/20/23 09/22/23 09/23/23 18:45 19:52 06:12 WBC 18.85 H 27.67 H* RBC 3.75 L 3.26 L Hgb 11.7 L 10.4 L Hct 35.4 30.6 L MCV 94 94 MCH 31 32 MCHC 33 34 RDW Coeff of Papa 13.2 13.5 Plt Count 190 182 Neut % (Auto) 92.9 H 87.2 H Lymph % (Auto) 2.1 L 5.8 L Wallace % (Auto) 4.6 6.5 Eos % (Auto) 0.0 0.0 Baso % (Auto) 0.0 0.1 Neut # (Auto) 17.50 H 24.10 H Lymph # (Auto) 0.40 L 1.60 Wallace # (Auto) 0.90 1.80 H Eos # (Auto) 0.00 0.00 Baso # (Auto) 0.00 0.00 Abs Immat Gran (auto) 0.10 0.10 Imm/Tot Granulo (auto) 0.4 0.4 INR 1.02 1.17 H APTT 28 34 H Fibrinogen 506 H 552 H RPR Screen Non Reactive OB - PN: A/P Delivery Assessment and Plan (1) (normal spontaneous vaginal delivery): Status: Acute Plan 1. Continue care and breast-feeding Education. 2. Planning discharge home tomorrow.
[2023-09-23 12:28] VITALS: BP 106/74; PULSE 98; RESP 16; TEMP 36.3; O2SAT 100
--- NOTE | 2023-09-23 15:08 | PM.ANPOST ---
Post Anesthesia Note Post Anesthesia Note Patient seen: Inpatient Respiratory Status: adequate Cardiovascular Status: adequate Mental Status: baseline Pain: adequate Temp: baseline Anesthetic awareness: N/A Complications: none Follow care: none
[2023-09-23 16:04] VITALS: BP 116/75; PULSE 88; RESP 16; TEMP 36.5; O2SAT 98
[2023-09-23 19:38] VITALS: BP 128/79; PULSE 88; RESP 16; TEMP 36.6
[2023-09-24 05:16] VITALS: BP 112/72; PULSE 88; RESP 16; TEMP 36.4
[2023-09-24] MEDS: IBUPROFEN 600 MG TABLET PO (05:56)
--- NOTE | 2023-09-24 08:04 | P.DS_ITS ---
DS: Providers Provider Date Seen: 09/24/23 Date of admission: 09/20/23 16:04 Primary care physician: Not a Local Provider Admitting Clinician: Darlene Solano MD Attending Physician on discharge: Lisa Clark CNM DS: Diagnosis Discharge Diagnosis (1) care and examination immediately after delivery: Status: Acute (2) Lactating mother: Status: Acute (3) Gestational hypertension: Status: Acute Problem details: Diagnosed based on multiple elevated BP >4 hours apart, labs pending Exam Narrative: Exam Narrative: GENERAL APPEARANCE:? normal affect, alert, no distress MOOD:? appropriate CHEST:? clear to auscultation HEART:? regular rate and rhythm ABDOMEN:? soft, non-tender the uterine fundus is at Umbilicus, Midline and is appropriate for the stage of recovery. PERINEUM:? mild edema of the perineum, there is a Perineal Laceration,?2nd degree, that is healing well. Scant lochia. EXTREMITIES:? normal and trace edema Const: Vital Signs, click to edit/add: Vital Signs - 24 hr 09/23/23 09:12 09/23/23 12:28 09/23/23 16:04 Temperature 97.7 F 97.4 F L 97.7 F Pulse Rate [Blood Pressure Cuff] 88 98 88 Respiratory Rate 16 16 16 Blood Pressure [Le ft Arm] 112/75 106/74 116/75 Pulse Oximetry 100 100 98 Oxygen Delivery Me thod Room Air Room Air Room Air 09/23/23 19:38 09/24/23 05:16 Temperature 97.8 F 97.6 F Pulse Rate [Blood Pressure Cuff] 88 88 Respiratory Rate 16 16 Blood Pressure [Le ft Arm] 128/79 112/72 Pulse Oximetry Oxygen Delivery Me thod Documenting provider has reviewed patient's vital signs: yes OB - DS: Summary Hospital Course Hospital Course: Bri is a 33 y.o. G 1 P 1 who was admitted to [facility] for induction of labor for post dates. ?She had a NVD that was complicated PPH requiring multiple medications and Shalonda. The patient feels well. ?The pain is well controlled with current medications. ?She has no new complaints. ?She is breast feeding and reports things are going well. the patient has done well.?She has had multiple elevated blood pressures more than 4 hours apart during her hospital stay, with most repeat blood pressures normotensive. Vitals have been stable.? She has remained afebrile.? Has a good appetite, is tolerating a general diet. ?She is voiding without difficulty.? She is passing gas and has not had a bowel movement.? She is ambulating and denies any dizziness.? Has small amount of rubra lochia. She is undecided about prevention. Problems: GHTN plan: Discharge home with baby. Follow up in 2 weeks and 6 weeks. , may see if needed. Patient desires to see prior to discharge. Hgb 9.1. Every other day iron supplement ordered. GHTN diagnosed by elevated BP greater than 4 hours apart Labs pending, no p/c ratio obtained due to pp status Discharge home with BP cuff if does not already have one Follow up in 3-5 days Call for signs/symptoms of preeclampsia Peripartum Data Infant delivery method: Vaginal Laceration description: Perineal - 2nd Degree complications: none Infant Gender: Female Discharge Plan: Home Status at Discharge Functional status at discharge: independent ambulation Overall status at discharge: patient is progressing back to baseline Time Spent with Patient Time attestation: Total time spent providing and/or coordinating discharge services: Time spent: Less than 30 minutes Discharge Plan Discharge Disposition: Home, Self-Care Date of Admission: 09/20/23 16:04 Attending Provider on Discharge: Lisa Clark Primary Care Provider: Provider,Not a Local Condition: Stable Anticipated Discharge Date/Time: 09/24/23 12:00 Discharge Medications: New acetaminophen 500 mg Tablet 1,000 mg PO Q6H PRNQty: 0 0RF docusate sodium 100 mg Capsule 100 mg PO BID PRNQty: 90 0RF ibuprofen 600 mg Tablet 600 mg PO Q6H PRNQty: 60 0RF ferrous sulfate 325 mg (65 mg iron) tablet 325 mg PO Q OTHER DAY Qty: 90 0RF Continued DHA 200 mg capsule 1 mg PO DAILY calcium carbonate [Tums] 200 mg calcium (500 mg) tablet,chewable 200 mg PO BID Discharge Orders: Discharge Order (Routine); Ordered 09/24/23 Ordered By: Lisa Clark Patient Education: OB Over the Counter Medication Information, OB Vaginal/Breast Feeding Additional Instructions: Discharge instructions were reviewed with the patient including signs and symptoms of infection and home going medications Nothing vaginally for 6 weeks: no tampons or intercourse Off Work or School for 6 weeks Follow [facility] for a BP check?3-5 days Call with BP greater than or equal to 160/110 2-week visit: discuss infant feeding concerns, review control options and screen for anxiety/depression. 6-week visit for an annual exam. consultation services are available to all mothers and babies for the first year after delivery.? To make an appointment, please call [phone]. Activity Level: Activity as Tolerated Discharge Diet: Regular Follow Up Appointments: [facility] [Provider Group] Forms: videoNEXT Info Instructions
[2023-09-24 08:21] LABS: Hematocrit 27.9 % (33.0-51.0); Hemoglobin* 9.1 gm/dL (12.0-16.0); Mean Corpuscular HGB Conc 33 gm/dL (32-36); Mean Corpuscular Hemoglobin 31 pg (26-34); Mean Corpuscular Volume 95 fL (80-100); Platelet Count* 182 K/uL (140-440); Red Blood Count 2.93 m/uL (4.00-5.20); Slide Review Reflex No; White Blood Count* 18.24 K/uL (4.50-11.00)
[2023-09-24 08:35] LABS: Alanine Aminotransferase* 15 U/L (4-35); Aspartate Amino Transferase* 33 U/L (12-35); Blood Urea Nitrogen* 10 mg/dL (5-24); Creatinine* 0.7 mg/dL (0.5-1.5); Est. Creatinine Clearance* 107.01; Estimated Glomerular Filt Rate 117 ml/min
[2023-09-24 08:40] VITALS: BP 114/73; PULSE 84; RESP 16; TEMP 36.4; O2SAT 100
[2023-09-24] MEDS: DOCUSATE SODIUM 100 MG CAPSULE PO (08:54)
[2023-09-24] MEDS: ACETAMINOPHEN 500 MG TABLET 1000 MG PO (08:54)
[2023-09-24] MEDS: FERROUS SULFATE 325 MG TABLET PO (09:07)
[2023-09-24 12:26] VITALS: BP 135/82; PULSE 82; RESP 16; TEMP 36.7; O2SAT 100
== END 2023-09-24 16:08 | disposition home or self-care (01) | DRG 768 ==
PROVIDERS: Advanced Practice Midwife; Obstetrics & Gynecology; Admitting Provider Obstetrics & Gynecology; Visit Provider Obstetrics & Gynecology
DX: O48.0 Post-term pregnancy (principal); Z37.0 Single live birth; O72.1 Other immediate postpartum hemorrhage; O70.1 Second degree perineal laceration during delivery; O13.5 Gestational [pregnancy-induced] hypertension without significant proteinuria, complicating the puerperium; O63.0 Prolonged first stage (of labor); O63.1 Prolonged second stage (of labor); O42.02 Full-term premature rupture of membranes, onset of labor within 24 hours of rupture; Z3A.41 41 weeks gestation of pregnancy
CPT/HCPCS: 01967; 36415; 59200; 82565; 84450; 84460; 84520; 85025; 85027; 85384; 85610; 85730; 86592; 86850; 86900; 86901; A9270; C1726; J0665; J2210; J2371; J2795; J7120

== ENCOUNTER 2023-09-26 08:39 | Outpatient (CLI) | payer OTHER, SELFPAY ==
--- NOTE | 2023-09-26 17:00 | P.LACCB_ITS ---
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 Hearn Jaundice: Yes (to abdomen, mile) Reason for Consult Reason for Consult: difficulty latching Past Experience Past Experience: No Current Frequency of Day Feedings: about every three hours around the clock Suck: strong Latch: fairly wide, using a nipple shield Length of Time: about 20 minutes Pumping Pumping: Yes (with every feeding) Quantity Pumped: drops Supplementing EMB Supplement: No Formula Supplement: Yes (baby takes 20 ml's by SNS or finger feeding every three hours) Baby Elimination Number of Wet Diapers a Day: 2 - 3 Number of BM a Day: 3 - 5, transitional Breast/Nipple Condition Breast Information: WNL Engorgement: No Maternal Nipple Condition - Left: Common Nipple Maternal Nipple Condition - Right: Common Nipple Sore Nipples: No Onsite Pre-Feed weight: 3.28 kg Post-Feed weight: 3.28 kg Milk Transferred (mL): 0 Assessments/Interventions Assessments/Interventions: Met with mom and this now 2 day old ex- term AGA baby for consult. Baby has had trouble latching from the beginning and mom's milk hasn't begun to come in. Couplet was d/c'd on 09/23 with a plan to practice nursing at the breast with a nipple shield, then supplement with formula at least every three hours. Mom reports over the past few days, she and dad are waking baby to nurse every three hours. Sometimes she will supplement baby by SNS at the breast and sometimes dad will finger feed the supplement. They have been increasing the amount by 5 ml every day and today baby is at 20 ml formula each feeding. Mom is pumping with a new Medela pump at every feeding but only getting drops. Breasts WNL- symmetrical with rounded lower quadrants, intramammary distance is < 1.5 inches. Nipples are a little short but everted and they don't flatten or retract on compression, no damage noted. Mom reports a PPH of almost one liter after delivery, she didn't receive a transfusion. Baby hasn't begun to gain weight from D/C and today at 2 DOL is 5% below BW. There was no caput/cephalohematoma at delivery. Per POC she has equal ROM when turning her head and moving her extremities. Her palate is a little high. Her upper frenulum is tight as her gums brayden when the lips are flanged. She has a strong suck on a finger, but her tongue doesn't extend over the gumline consistently. There was really no lateral movement, but she was crying. Her lower frenulum is a little thicker than normal. Mom latched baby to the left side in the football hold using the nipple shield. The latch appeared fairly deep and mom was comfortable, stating baby had a strong suck. Mom nursed for about 10 minutes and baby needed a lot of stimulation to stay awake and actively suckling. This was the same experience when mom switched her to the right. After 10 minutes on this side, baby was weighed and hadn't transferred anything. Mom then put her back on the right side and with dad's help supplemented baby with 25 ml formula by SNS. Demonstrated the tug of war exercise to hopefully help baby learn to extend her tongue over the gumline more consistently. Plan: 1. Continue to nurse baby every 2 - 3 hours using the nipple shield. Mom can either just nurse for 10 min/side OR can supplement at the breast staying on one side for the entire feeding. 2. Supplement by SNS at the breast OR after nursing by finger feeding or with a bottle. Reviewed paced feeding with dad. Suggested POC increase the supplement by 5 - 10 ml/day with the understanding that by two weeks most babies are taking at least 2 oz at each feeding session. 3. Suggested mom continue pumping with every feeding for now, but can shorten the time to 10 - 15 minutes. She plans on ordering smaller flange sizes based on the measurements we did inpatient. Also suggested she add in some massage and/or hand expression. 4. Will f/u in on 10/03/23. Has NB visit later today. 5. Encouraged POC to practice the tongue exercise 4 - 5 times/day. Meds Home Medications and Allergies Home Medications Medication Instructions Recorded Confirmed Type docosahexaenoic acid 200 mg 1 mg PO DAILY 02/14/23 09/21/23 History capsule ( DHA) calcium carbonate (Tums) 200 mg PO BID 09/04/23 09/20/23 History Allergies Allergy/AdvReac Type Severity Reaction Status Date / Time cefprozil Allergy Mild Hives Verified 09/19/23 08:21
== END 2023-09-26 08:40 | disposition home or self-care (01) ==
PROVIDERS: Visit Provider Obstetrics & Gynecology
DX: Z39.1 Encounter for care and examination of lactating mother (principal)
CPT/HCPCS: G0463

== ENCOUNTER 2024-04-17 09:28 | Emergency (ER) | payer OTHER, SELFPAY ==
[2024-04-17] VITALS (11 sets, daily range): BP systolic 118–126; BP diastolic 82–83; PULSE 82–92; RESP 16–18; TEMP 36.4; O2SAT 97–100; BMI 27.9
--- NOTE | 2024-04-17 09:46 | ED.CHESTPAIN ---
HPI - Chest Pain General Time Seen by Provider: 09:46 Date Seen: 04/17/24 Chief Complaint: Chest Pain Stated Complaint: chest pain Time Seen by Provider: 04/17/24 09:45 Source: patient and RN notes reviewed Mode of arrival: ambulatory Limitations: no limitations History of Present Illness HPI narrative: This 33-year-old female is coming in with concern of left-sided chest pain that is worsening. It is definitely pleuritic in nature, hurts with breathe. There are no fevers or chills with this. She has had a little bit of runny nose but has not went into anything else, no cough or cold symptoms with it. She has had no calf pain or swelling, no travel. She has no GI symptoms with this. She 1st noticed it about 10:00 p.m. last night when she was getting ready for bed. It was there when she woke up overnight to feed her 6-month-old baby. She is pumping breast milk. It was there this morning when she woke up at 6:30 a.m. for the day, is getting worse. It is not radiating anywhere. It is in the left lower chest wall, under the breast, is deeper, she cannot touch it or reproduce it in the chest wall. She is not on contraceptives. She has not tried anything for the pain yet. She does not feel short of breath per se but just feels like it is hard to breathe due to the pain in the chest. complaint: chest pain Related Data Previous Rx's ?Medication ?Instructions ?Recorded ketorolac 10 mg tablet 10 mg PO Q6H PRN pain #20 tabs 04/17/24 Allergies Allergy/AdvReac Type Severity Reaction Status Date / Time cefprozil Allergy Mild Hives Verified 03/20/24 09:06 Review of Systems Status of ROS Reports: 6 or more systems reviewed and unremarkable except as noted in History and below [facility] Medical History (normal spontaneous vaginal delivery) ?O80 - Encounter for full-term uncomplicated delivery (ICD-10) Obesity (05/16/22) ?E66.9 - Obesity, unspecified (ICD-10) Surgical History History of tonsillectomy ?Z90.89 - Acquired absence of other organs (ICD-10) Hx of appendectomy ?Z90.49 - Acquired absence of other specified parts of digestive tract (ICD-10) Family History Mother Non-Hodgkin lymphoma Lewy body dementia Thyroid disease High blood pressure Osteoporosis Basal cell carcinoma Brother High blood pressure Drug dependence Maternal Grandmother Colon cancer Stroke Social History Narrative: Lives in [place] with . 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 Patient is . What is your current living situation?: I presently have a place to live Problems where you live: no known problems In the past 12 months, utilities in danger of being shut off: no In past 12 months, lack of transportation kept you from medical appts, meetings, work, or getting things needed for daily living: no In the past 12 mos, have been you worried that your food would run out before you had money to buy more?: never true In the past 12 mos, the food you bought just didn't last and you didn't have money to buy more?: never true Smoking Status: Never smoker Second hand tobacco smoke exposure: No Non-prescribed substance use: denies use How often does anyone, including family, friends and others, physically hurt you: never How often does anyone, including family, friends and others, insult or talk down to you: never How often does anyone, including family, friends and others, threaten you with harm: never How often does anyone, including family, friends and others, scream or curse at you: never Little interest or pleasure in doing things: not at all Feeling down, depressed, or hopeless: not at all Exam Const Vital Signs, click to edit/add: Vital Signs - 24 hr 04/17/24 09:32 04/17/24 09:53 04/17/24 10:11 Temperature 97.6 F Pulse Rate 89 Pulse Rate [Pulse Oximeter] 92 Respiratory Rate 18 16 Blood Pressure 118/82 Blood Pressure [Right Upper Arm] 126/83 Pulse Oximetry 98 99 98 Oxygen Delivery Method Room Air 04/17/24 10:12 04/17/24 10:15 04/17/24 10:30 Temperature Pulse Rate 85 89 84 Pulse Rate [Pulse Oximeter] Respiratory Rate Blood Pressure Blood Pressure [Right Upper Arm] Pulse Oximetry 98 97 98 Oxygen Delivery Method 04/17/24 10:35 04/17/24 10:45 04/17/24 11:00 Temperature Pulse Rate 87 84 82 Pulse Rate [Pulse Oximeter] Respiratory Rate Blood Pressure Blood Pressure [Right Upper Arm] Pulse Oximetry 98 100 97 Oxygen Delivery Method 04/17/24 11:05 04/17/24 11:15 Temperature Pulse Rate 92 89 Pulse Rate [Pulse Oximeter] Respiratory Rate Blood Pressure Blood Pressure [Right Upper Arm] Pulse Oximetry 99 100 Oxygen Delivery Method This 33-year-old female is alert, interactive, no apparent distress. Ambulatory into the ED of her own accord. Pupils are equal round reactive, sclerae clear, extraocular muscles intact. TMs have a little scarring centrally but otherwise drains loosened, no erythema, no drainage in canals. Oropharynx normal mucosa, no exudates or erythema. Speech is normal, able speak complete sentences. Neck supple, no adenopathy, no thyromegaly masses or nodules. She can sit up easily, lungs are clear, good air entry, no wheezing or crackles, no tachypnea. CV regular rate and rhythm, no murmur, normal S1-S2, no S3-S4. No reproducible chest wall tenderness. Abdomen is soft, nontender, nondistended, no organomegaly. She has no lower extremity edema, no calf tenderness. Documenting provider has reviewed patient's vital signs: yes Course Course ED Course: Was able to review with patient that her presenting EKG looks reassuring. We will get a troponin. She has had symptoms since last night, did have symptoms when she woke up at 2:00 a.m., has had symptoms since 06:30 this morning, she is having progressive worsening symptoms with symptoms have consistently been there. I do think if her EKG and troponin come back normal now, this has a very low likelihood of being ischemic cardiac disease or myocarditis. EKG is reassuring without any pericardial changes. Did review with her that we will do a D-dimer, if elevated she will need to proceed with chest CT imaging to rule out pulmonary embolus. I do think this is lower likelihood given her stability of symptoms, not hypoxic, not tachycardic but does need to be considered. This certainly seems to be consistent with pleurisy, will get a portable chest x-ray. Could be early atypical presentation of infectious etiology like pneumonia. Will get full complement of labs, monitor her on pulse oximetry. Will give her a dose of IV Toradol to see if it helps with her symptoms. Reevaluation(s) Time of Reevaluation #1: 11:21 Reevaluation #1: Have reviewed with patient that her chest x-ray showing no acute pathology. Her labs are all reassuring, we did review these. The Toradol has helped her. If she takes a really deep breath, she can still feel the area in her chest but it is much improved with the IV Toradol. We discussed that this is likely pointing to pleurisy. Would anticipate 1-2 weeks the symptoms. Discussed signs and symptoms for return. Vital Signs Vital signs: Initial Vital Signs Respiratory Effort Normal, Spontaneous 04/17/24 09:29 Respiratory Depth Normal 04/17/24 09:29 Respiratory Pattern Normal 04/17/24 09:29 Vital Signs Temperature 97.6 F 04/17/24 09:32 Pulse Rate 92 04/17/24 09:32 Respiratory Rate 18 04/17/24 09:32 Blood Pressure 126/83 04/17/24 09:32 Pulse Oximetry 98 04/17/24 09:32 Oxygen Delivery Method Room Air 04/17/24 09:32 Temperature 97.6 F 04/17/24 09:32 Pulse Rate 89 04/17/24 11:15 Respiratory Rate 16 04/17/24 10:11 Blood Pressure 118/82 04/17/24 10:11 Pulse Oximetry 100 04/17/24 11:15 Oxygen Delivery Method Room Air 04/17/24 09:32 Medications Administered Medications: Discontinued Medications Generic Name Dose Route Start Last Admin Trade Name Freq PRN Reason Stop Dose Admin Ketorolac Tromethamine 15 mg 04/17/24 09:53 04/17/24 10:03 Ketorolac 15 Mg/Ml Inj IVP 04/17/24 09:54 15 mg ONCE ONE Administration MDM - Chest Pain Lab Data Labs: Lab Results 04/17/24 04/17/24 Range/Units 10:08 10:26 WBC 6.19 (4.50-11.00) K/uL RBC 4.56 (4.00-5.20) m/uL Hgb 13.6 (12.0-16.0) gm/dL Hct 41.2 (33.0-51.0) % MCV 90 (80-100) fL MCH 30 (26-34) pg MCHC 33 (32-36) gm/dL RDW Coeff of Papa 13.1 (11.5-15.5) % Plt Count 243 (140-440) K/uL Neut % (Auto) 52.0 (42.0-72.0) % Lymph % (Auto) 31.0 (20-44) % [place] % (Auto) 8.9 (0.0-11.0) % Eos % (Auto) 7.3 H (0.0-7.0) % Baso % (Auto) 0.6 (0.0-3.0) % Neut # (Auto) 3.22 (1.7-7.0) K/uL Lymph # (Auto) 1.92 (0.90-2.90) K/uL [place] # (Auto) 0.60 (0.00-0.90) K/UL Eos # (Auto) 0.50 (0.00-0.50) K/uL Baso # (Auto) 0.04 (0.00-0.30) K/uL Abs Immat Gran (auto) 0.01 (0.00-0.30) K/uL Imm/Tot Granulo (auto) 0.2 % D-Dimer Quant (PE/DVT) 0.41 (0.00-0.50) ug/ml Sodium 135 (135-149) mmol/L Potassium 3.5 L (3.6-5.1) mmol/L Chloride 104 (96-114) mmol/L Carbon Dioxide 24 (20-32) mmol/L Anion Gap 7 (7-15) mEq/L BUN 15 (5-24) mg/dL Creatinine 0.6 (0.5-1.5) mg/dL Estimated Creat Clear 124.85 Estimated GFR 121 ml/min Glucose 103 (60-115) mg/dL Lactate 0.7 (0.5-1.9) mmol/L Calcium 8.8 (8.4-10.6) mg/dL Total Bilirubin 0.3 (0.1-1.5) mg/dL AST 20 (12-35) U/L ALT 19 (4-35) U/L Alkaline Phosphatase 53 (40-150) U/L Troponin I < 0.01 L (0.01-0.04) ng/mL C-Reactive Protein < 0.5 L (0.5-1.0) mg/dL NT-Pro-B Natriuret Pep < 20 pg/mL Total Protein 7.0 (6.0-8.3) g/dL Albumin 4.2 (3.3-5.0) g/dL Imaging Data Chest x-ray: Attestation: I have reviewed the pertinent imaging results. My impression: Have visualize this portable chest x-ray, my preliminary review I do not see any infiltrate, no effusion, no pneumothorax. Radiologist's impression: Patient: UDAY SIDHU Facility:?[facility] Patient ID:?[id number] Site Patient ID:?[id number]. Site :?[id number] Study:?XRay-Chest Portable 1V-04/17/2024 10:17:36 AM Ordering Physician:Attila Zeng Final Report: Indication: Left pleuritic chest pain. Technique: One view(s) of the chest. Comparison: None available. Findings: Normal cardiomediastinal silhouette. Mildly hypoinflated lungs with bronchovascular crowding. No focal consolidation. No pleural effusion or pneumothorax. No acute osseous abnormality identified. Impression: Hypoinflated lungs without acute abnormality identified. Dictated by Anastasia Vazquez MD @ 04/17/2024 10:20:08 AM (Electronic Signature) ECG Data Attestation: I personally reviewed and interpreted this ECG as follows: (Normal sinus rhythm, 83 beats per minute. No ischemic change, no infarct.) ECG interpretation date: 04/17/24 ECG interpretation time: 09:46 Prior ECG tracings: not available for review Discharge Plan Discharge Clinical Impression: Acute pleurisy without pleural effusion Patient Disposition: Home, Self-Care Condition: Stable Instructions: Pleurisy (ED) Additional Instructions: Can use Toradol per prescription instructions. Once the Toradol is done, can switch over to ibuprofen. Can also use Tylenol 1000 mg up to 3 times a day with either of these medicines. If you develop fever, have worsening pain uncontrolled by outline pain management, developed cough, develops shortness of breath or difficulty breathing, do recommend re-evaluation. Activity Level: Activity as Tolerated Discharge Diet: Regular Prescriptions: New ketorolac 10 mg tablet 10 mg PO Q6H PRN (Reason: pain) Qty: 20 0RF Rx Instructions: maximum total duration of 5 days from all oral, intranasal, or parenteral formulations Follow Up/Referrals: Provider,Not a Local [Primary Care Provider] - Stand Alone Forms: [employer] Info Instructions
--- NOTE | 2024-04-17 09:53 | CRLHL7_ITS ---
For Patients: As a result of the Century Cures Act, medical imaging exams and procedure reports are released immediately into your electronic medical record. You may view this report before your referring provider. If you have questions, please contact your health care provider. Indication: Left pleuritic chest pain. Technique: One view(s) of the chest. Comparison: None available. Findings: Normal cardiomediastinal silhouette. Mildly hypoinflated lungs with bronchovascular crowding. No focal consolidation. No pleural effusion or pneumothorax. No acute osseous abnormality identified. Impression: Hypoinflated lungs without acute abnormality identified. Dictated by Anastasia Vazquez MD @ 04/17/2024 10:20:08 AM (Electronically Signed)
--- OUTSIDE RECORDS SUMMARY | 2024-04-17 10:02 | XMS_ITS | Clinical Summary ---
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 Name Role Phone None Primary Care Provider [...] booster 2010 COVID-19 vaccine series ( season) 2024 10/25/2020, 10/02/2020 Influenza for age 9-49 02/10/2024 Pap test for age 21-65 03/02/2025 , 03/02/2022 Pneumococcal series for age 6-64 Aged Out No longer eligible b ased on patient's age to complete this topic Procedures Procedure Name Priority Date/Time Associated Diagnosis Comments HPV HIGH RISK Routine 03/02/2022 12:00 PM CDT from Last 3 Months or Most Recently Relevant to Health Maintenance Results * HPV HIGH RISK (03/02/2022 12:00 PM CDT) TYPE 16 Negative Negative 03/07/2022 5:45 PM [facility]T [facility] TYPE 18 Negative Negative 03/07/2022 5:45 PM CDT [facility] OTHER HIGH RISK TYPES Negative Negative 03/07/2022 5:45 PM CDT [facility] Other (Cervical) 03/02/2022 12:00 PM CDT 03/06/2022 8:23 AM CDT Narrative [facility] - 03/07/2022 5:45 PM CDT HPV types 16, 18, 31, 33, 35, 39, 45, 51, 52, 56, 58, 59, 66 and 68 DNA were undetectable or below the pre-set threshold. Methodology: Will Angelita 4800 HPV Test Doctor Unknown [employer] [address] [place] [address], from Last 3 Months or Most Recently Relevant to Health Maintenance Care Teams Plant Facilities Technician Relationship Specialty Start Date End Date None . PCP - General 04/04/19
[2024-04-17] MEDS: KETOROLAC 15 MG/ML inj IVP (10:03)
[2024-04-17 10:21] LABS: Lactate* 0.7 mmol/L (0.5-1.9)
[2024-04-17 10:22] LABS: Basophils Absolute Auto 0.04 K/uL (0.00-0.30); Basophils Percent Auto 0.6 % (0.0-3.0); Eosinophils Percent Auto 7.3 % (0.0-7.0); Hematocrit 41.2 % (33.0-51.0); Hemoglobin* 13.6 gm/dL (12.0-16.0); Immature Granulocytes Abs Auto 0.01 K/uL (0.00-0.30); Immature Granulocytes Pct Auto 0.2 %; Lymphocytes Absolute Auto 1.92 K/uL (0.90-2.90); Mean Corpuscular HGB Conc 33 gm/dL (32-36); Mean Corpuscular Hemoglobin 30 pg (26-34); Mean Corpuscular Volume 90 fL (80-100); Monocytes Percent Auto 8.9 % (0.0-11.0); Neutrophils Absolute Auto 3.22 K/uL (1.7-7.0); Platelet Count* 243 K/uL (140-440); RDW Coefficient of Variation % 13.1 % (11.5-15.5); Red Blood Count 4.56 m/uL (4.00-5.20); White Blood Count* 6.19 K/uL (4.50-11.00)
[2024-04-17 10:41] LABS: Albumin* 4.2 g/dL (3.3-5.0); Chloride* 104 mmol/L (96-114); Sodium* 135 mmol/L (135-149)
[2024-04-17 10:42] LABS: Potassium* 3.5 mmol/L (3.6-5.1)
[2024-04-17 10:44] LABS: Alanine Aminotransferase* 19 U/L (4-35); Alkaline Phosphatase* 53 U/L (40-150); Anion Gap 7 mEq/L (7-15); Aspartate Amino Transferase* 20 U/L (12-35); Bilirubin Total* 0.3 mg/dL (0.1-1.5); Carbon Dioxide* 24 mmol/L (20-32); Creatinine* 0.6 mg/dL (0.5-1.5); Est. Creatinine Clearance* 124.85; Estimated Glomerular Filt Rate 121 ml/min; Glucose* 103 mg/dL (60-115); Slide Review Reflex No
[2024-04-17 10:45] LABS: Calcium* 8.8 mg/dL (8.4-10.6)
[2024-04-17 10:59] LABS: Blood Urea Nitrogen* 15 mg/dL (5-24)
[2024-04-17 11:00] LABS: C Reactive Protein* < 0.5 mg/dL (0.5-1.0); NT Pro B Type NatriureticPept* < 20 pg/mL; Troponin I* < 0.01 ng/mL (0.01-0.04)
[2024-04-17 11:06] LABS: D Dimer Quantitative* 0.41 ug/ml (0.00-0.50)
== END 2024-04-17 11:33 | disposition home or self-care (01) ==
PROVIDERS: Emergency Provider Family Medicine
DX: R09.1 Pleurisy (principal)
CPT/HCPCS: 36415; 71045; 80053; 83605; 83880; 84484; 85025; 85379; 86140; 93005; 94761; 96374; 99284; J1885

== ENCOUNTER 2025-02-26 13:52 | Outpatient (CLI) | payer OTHER, SELFPAY ==
[2025-02-27 00:09] LABS: Chlamydia DNA Amplified* NOT DETECTED (No Detected); GC DNA Amplified* NOT DETECTED (No Detected)
== END 2025-02-26 13:53 | disposition home or self-care (01) ==
LOC: FRMREF 13:52
PROVIDERS: Visit Provider Registered Nurse
DX: N89.8 Other specified noninflammatory disorders of vagina (principal)
CPT/HCPCS: 87491; 87591